=== PATIENT | male | born 1975 | race Two or more races ===

== ENCOUNTER 2017-06-04 17:40 | Inpatient (IN) | payer MEDICAID ==
[~2017-06-04] VITALS: Ht 167.6 cm; Wt 87.1 kg
[2017-06-04] MEDS ORDERED: VANCOMYCIN 1 G PREMIX 200 ML IV ONE (22:30)
[2017-06-04] MEDS ORDERED: SODIUM CHLORIDE 0.9% 1000ML BAG (SEPSIS BOLUS) IV ONE (22:30)
[2017-06-04] MEDS ORDERED: PIPERACILLIN/TAZ 3.375G PREMIX 50 ML IV ONE (22:30)
[2017-06-04 22:58] LABS: CLARITY URINE CLEAR (CLEAR); COLOR URINE DARK YELLOW (YELLOW); KETONES URINE TRACE (NEGATIVE); LEUKOCYTE ESTERASE URINE NEGATIVE (NEGATIVE); NITRITE URINE NEGATIVE (NEGATIVE); OCCULT BLOOD URINE NEGATIVE (NEGATIVE); PROTEIN URINE 1+ (NEGATIVE); SPECIFIC GRAVITY URINE 1.028 (1.005-1.030)
[2017-06-04 22:58] LABS: CHLORIDE 101 mEq/L (98-107)
[2017-06-04] MEDS ORDERED: ONDANSETRON HCL 4MG/2ML VIAL IV ONE (23:00)
[2017-06-04] MEDS ORDERED: MORPHINE SULFATE 4 MG/ML CPJ (NOT FOR IM USE) IV ONE (23:00)
[2017-06-04 23:02] LABS: INR 0.9; PROTHROMBIN TIME 9.8 sec (9.4-11.6)
[2017-06-04 23:03] LABS: BASOPHILS % 0.7 % (0.0-2.0); EOSINOPHILS % 0.9 % (0.0-5.0); ETHANOL BLOOD 126 mg/dL; HEMATOCRIT. 28.7 % (42.0-52.0); HEMOGLOBIN. 10.3 g/dL (14.0-18.0); LYMPHOCYTES % 18.6 % (20.0-50.0); MEAN CORPUSCULAR HEMOGLOBIN 34.1 pg (28.0-32.0); MEAN CORPUSCULAR VOLUME 95.2 fL (80.0-94.0); MEAN PLATELET VOLUME 7.1 fl (7.4-10.4); MONOCYTES % 10.4 % (2.0-8.0); NEUTROPHILS % 69.4 % (40.0-76.0); PLATELET 265 x1000/uL (130-400); RED BLOOD CELL COUNT 3.02 mill/uL (4.7-6.1); RED CELL DISTRIBUTION WIDTH 13.8 % (11.6-14.6)
[2017-06-04 23:07] LABS: *AMPHETAMINES SCREEN URINE PRESUMTIVE POSITIVE (NEGATIVE); *BARBITURATES SCREEN URINE NEGATIVE (NEGATIVE); *BENZODIAZEPINES SCREEN URINE NEGATIVE (NEGATIVE); CANNABINOID URINE SCREEN PRESUMTIVE POSITIVE (NEGATIVE); OPIATES URINE SCREEN NEGATIVE (NEGATIVE); PHENCYCLIDINE URINE SCREEN NEGATIVE (NEGATIVE)
[2017-06-04 23:08] LABS: *COCAINE SCREEN URINE NEGATIVE (NEGATIVE); METHADONE URINE SCREEN NEGATIVE (NEGATIVE)
[2017-06-04] MEDS ORDERED: CHLORDIAZEPOXIDE 25MG CAPSULE PO ONE (23:30)
[2017-06-05 04:00] VITALS: BP 113/71
[2017-06-05 04:28] VITALS: BP 113/71
[2017-06-05] MEDS ORDERED: ACETAMINOPHEN 325MG TABLET PO PRN (04:30)
[2017-06-05] MEDS ORDERED: VANCOMYCIN 1 G PREMIX 200 ML IV SCH (07:00)
[2017-06-05 08:00] VITALS: BP 106/67
[2017-06-05] MEDS ORDERED: LORAZEPAM 2MG/ML CPJ IV PRN (08:30)
[2017-06-05] MEDS ORDERED: ENOXAPARIN 30MG/0.3ML SYR SUBCUT SCH (09:00)
[2017-06-05 09:19] LABS: HEMATOCRIT. 32.2 % (42.0-52.0); HEMOGLOBIN. 11.3 g/dL (14.0-18.0); MEAN CORPUSCULAR HEMOGLOBIN 33.4 pg (28.0-32.0); MEAN CORPUSCULAR VOLUME 95.1 fL (80.0-94.0); PLATELET 279 x1000/uL (130-400); RED BLOOD CELL COUNT 3.39 mill/uL (4.7-6.1); RED CELL DISTRIBUTION WIDTH 13.5 % (11.6-14.6)
[2017-06-05] MEDS: ENOXAPARIN 30MG/0.3ML SYR SUBCUT SCH ×2 (09:38→21:32)
[2017-06-05 09:48] LABS: CHLORIDE 101 mEq/L (98-107)
[2017-06-05] MEDS: MORPHINE SULFATE 4 MG/ML CPJ (NOT FOR IM USE) IV PRN ×2 (10:41→21:42)
[2017-06-05 12:00] VITALS: BP 112/77
[2017-06-05] MEDS ORDERED: FOLIC ACID 1 MG, THIAMINE HCL 100 MG, MVI, ADULT NO.1 10 ML in DEXTROSE 5% WATER 1,000 ML IV ONE ×4 (12:00)
[2017-06-05] MEDS: VANCOMYCIN 1 G PREMIX 200 ML IV SCH ×2 (15:02→21:32)
[2017-06-05] MEDS: CHLORDIAZEPOXIDE 25MG CAPSULE PO SCH ×2 (15:02→21:32)
[2017-06-05 16:00] VITALS: BP 105/65
[2017-06-05 17:58] LABS: PLATELET ESTIMATE NORMAL
[2017-06-05] MEDS: MUPIROCIN 2% OINT 22GM TOP SCH (18:14)
[2017-06-05 20:30] VITALS: BP 120/83
[2017-06-06 00:21] VITALS: BP 111/70
[2017-06-06 04:00] VITALS: BP 104/62
[2017-06-06 05:57] LABS: BASOPHILS % 0.8 % (0.0-2.0); EOSINOPHILS % 3.7 % (0.0-5.0); HEMATOCRIT. 31.3 % (42.0-52.0); HEMOGLOBIN. 10.7 g/dL (14.0-18.0); LYMPHOCYTES % 19.7 % (20.0-50.0); MEAN CORPUSCULAR HEMOGLOBIN 32.9 pg (28.0-32.0); MEAN PLATELET VOLUME 7.5 fl (7.4-10.4); MONOCYTES % 11.1 % (2.0-8.0); NEUTROPHILS % 64.7 % (40.0-76.0); PLATELET 277 x1000/uL (130-400); RED BLOOD CELL COUNT 3.26 mill/uL (4.7-6.1); RED CELL DISTRIBUTION WIDTH 13.7 % (11.6-14.6)
[2017-06-06 06:30] LABS: CHLORIDE 103 mEq/L (98-107)
[2017-06-06] MEDS: CHLORDIAZEPOXIDE 25MG CAPSULE PO SCH (06:31)
[2017-06-06] MEDS: VANCOMYCIN 1 G PREMIX 200 ML IV SCH (06:31)
[2017-06-06] MEDS: MUPIROCIN 2% OINT 22GM TOP SCH (06:32)
[2017-06-06 06:45] LABS: VANCOMYCIN TROUGH 15.9 ug/mL (5.0-10.0)
[2017-06-06 07:46] VITALS: BP 115/73
== END 2017-06-06 08:45 | disposition left against medical advice (07) | DRG 383 ==
LOC: ER 17:53 → EDBEDREQ 22:50 → 6WST 06-05 00:17 → EDBEDREQTM 06-05 00:19 → EDBEDREQDT 06-05 00:19 → EDBEDREQSVC 06-05 00:19 → EDBEDREQ 06-05 00:19 → ENRESERV 06-05 01:04
PROVIDERS: ADMIT Internal Medicine; ATTEND Internal Medicine
DX: L03.116 Cellulitis of left lower limb (principal); E43 Unspecified severe protein-calorie malnutrition; L03.115 Cellulitis of right lower limb; F12.10 Cannabis abuse, uncomplicated; F15.10 Other stimulant abuse, uncomplicated; F10.10 Alcohol abuse, uncomplicated; D64.9 Anemia, unspecified; Z53.21 Procedure and treatment not carried out due to patient leaving prior to being seen by health care provider; Z68.31 Body mass index [BMI] 31.0-31.9, adult
CPT/HCPCS: 36415; 71045; 80048; 80053; 80202; 80305; 81003; 82962; 83605; 83880; 85007; 85025; 85027; 85610; 87040; 93005; 93970; 96365; 96366; 96368; 96375; 99285; G0482; J1650; J2270; J2405; J2543; J3370; J3411; J3490; J7030; J7040; J7070

== ENCOUNTER 2018-12-29 16:02 | Emergency (ER) | payer MEDICAID ==
[~2018-12-29] VITALS: Ht 188 cm; Wt 68.0 kg
[2018-12-29] MEDS ORDERED: SODIUM CHLORIDE 0.9% 1,000 ML IV ONE (18:19)
[2018-12-29] MEDS ORDERED: BACITRACIN 15GM TUBE TOP ONE (18:30)
[2018-12-29 19:07] LABS: BASOPHILS % 1.4 % (0.0-2.0); EOSINOPHILS % 9.9 % (0.0-5.0); HEMATOCRIT. 32.8 % (42.0-52.0); HEMOGLOBIN. 11.1 g/dL (14.0-18.0); LYMPHOCYTES % 39.4 % (20.0-50.0); MEAN CORPUSCULAR HEMOGLOBIN 32.9 pg (28.0-32.0); MEAN PLATELET VOLUME 7.9 fl (7.4-10.4); MONOCYTES % 6.3 % (2.0-8.0); PLATELET 157 x1000/uL (130-400); RED BLOOD CELL COUNT 3.38 mill/uL (4.7-6.1); RED CELL DISTRIBUTION WIDTH 16.6 % (11.6-14.6)
[2018-12-29 19:11] LABS: CHLORIDE 113 mEq/L (98-107)
[2018-12-29 19:21] LABS: ETHANOL BLOOD 295 mg/dL
[2018-12-30] MEDS ORDERED: DIPHENHYDRAMINE 25MG CAPSULE PO ONE (04:30)
[2018-12-30] MEDS ORDERED: LORAZEPAM 1MG TABLET PO ONE (08:00)
[2018-12-30 09:25] VITALS: BP 120/72
== END 2018-12-30 09:49 | disposition home or self-care (01) ==
LOC: ER 16:02
DX: F10.229 Alcohol dependence with intoxication, unspecified (principal); F12.10 Cannabis abuse, uncomplicated; Z98.890 Other specified postprocedural states; Z86.73 Personal history of transient ischemic attack (TIA), and cerebral infarction without residual deficits; Y90.8 Blood alcohol level of 240 mg/100 ml or more
CPT/HCPCS: 36415; 80053; 80320; 85025; 99284; J7030; Q0163; G0480